=== PATIENT | female | born 2000 | race African-American/Black ===

== ENCOUNTER 2021-01-20 19:58 | Emergency (ER) | payer BC, OTHER ==
[~2021-01-20] VITALS: Ht 175.3 cm; Wt 124.3 kg
[2021-01-20 21:01] LABS: URINE BILIRUBIN NEGATIVE (Negative); URINE BLOOD 3+ (Negative); URINE CLARITY CLEAR; URINE COLOR YELLOW; URINE GLUCOSE-RANDOM* NEGATIVE (Negative); URINE KETONES NEGATIVE (Negative); URINE NITRITE-REFLEX NEGATIVE (Negative); URINE PROTEIN (DIPSTICK) NEGATIVE (Negative); URINE UROBILINOGEN 0.2 E.U./dl (0.2-1.0)
[2021-01-20 21:04] LABS: URINE LEUKOCYTES-REFLEX 1+ (Negative)
[2021-01-20 21:09] LABS: AMP/METHAMP Negative (Negative); BARBITURATES Negative (Negative); BENZODIAZEPINES Negative (Negative); COCAINE Negative (Negative); METHADONE Negative (Negative); OPIATES Negative (Negative); PCP Negative (Negative)
[2021-01-20 21:15] LABS: CASTS None Seen /LPF (None Seen); SQUAMOUS >10 Many /LPF (0-3)
[2021-01-20 21:16] LABS: BACTERIA-REFLEX 1-9 Few /HPF (None Seen); CRYSTALS None Seen /LPF (None Seen); URINE RBC 3-10 Few /HPF (NONE SEEN); URINE WBC-REFLEX 6-15 Few /HPF (0-5)
[2021-01-20 21:38] VITALS: BP 135/69
--- NOTE | 2021-01-21 08:56 | EKG ---
[address] [address] ELECTROCARDIOGRAM REPORT Name: PHIL RAMIRES Room #: DEP JESSICA Davis#: [id number] Admission: 01/20/21 Attend Phys: Discharge: 01/20/21 Date of : 89 Report #: [id number] [facility] ED Test Date: 2021-01-20 Test Time: 20:04:30 Pat Name: PHIL RAMIRES Department: Room: Gender: F [employer] Principal: [employer] : 2000 Requested By: Sharmin Carter Order Number: [id number] MD: Sigifredo Vila Measurements Intervals [place] Rate: 63 P: 22 PA: 137 QRS: 40 QRSD: 73 T: 31 QT: 400 QTc: 410 Interpretive Statements Sinus arrhythmia No significant abnormality No previous ECG available for comparison Electronically Signed On 01-21-2021 8:56:22 CDT by Sigifredo Vila [email or web address] <ELECTRONICALLY SIGNED> By: Sigifredo Vila MD, [facility] 01/21/21 [id number] 03 iSgifredo Vila MD, FACC /EPI
== END 2021-01-20 21:47 | disposition home or self-care (01) ==
LOC: ER 19:58
PROVIDERS: Physician Assistant
DX: R07.89 Other chest pain (principal); Z20.822 Contact with and (suspected) exposure to COVID-19; R51.9 Headache, unspecified; M79.89 Other specified soft tissue disorders; F32.9 Major depressive disorder, single episode, unspecified